=== PATIENT | female | born 1950 ===

== ENCOUNTER 2025-01-03 20:04 | Outpatient (REF) | payer MEDICARE, SELFPAY ==
[2025-01-03 18:00] LABS: C Diff PCR Negative (Negative); EPI 027-NAP1-B1 PRESUMPTIVE NEGATIVE
[2025-01-05 11:54] LABS: Campylobacter PCR Negative (Negative); Salmonella PCR Negative (Negative); Shiga Toxin PCR Negative (Negative); Shigella/Enteroinvasive Ecoli Negative (Negative)
== END 2025-01-03 20:05 | disposition home or self-care (01) ==
LOC: LBN 20:04
PROVIDERS: Visit Provider Student in an Organized Health Care Education/Training Program
DX: K52.9 Noninfective gastroenteritis and colitis, unspecified (principal)
CPT/HCPCS: 87328; 87329; 87505

== ENCOUNTER 2025-01-04 16:55 | Outpatient (REF) | payer MEDICARE, SELFPAY ==
[2025-01-08 16:57] LABS: Calprotectin 1664 mcg/g
== END 2025-01-04 16:56 | disposition home or self-care (01) ==
LOC: LBN 16:55
PROVIDERS: Visit Provider Student in an Organized Health Care Education/Training Program
DX: K52.9 Noninfective gastroenteritis and colitis, unspecified (principal)
CPT/HCPCS: 83993